=== PATIENT | male | born 1985 | race Caucasian/White ===

== ENCOUNTER 2021-07-30 04:57 | Emergency (ER) | payer OTHER ==
[~2021-07-30 04:57] MED LIST: BROMFED DM COU473 ML PO; DIAZEPAM 5MG TAB5 MG PO; KEFLEX250 MG PO; POTASSIUM20 MEQ/11 PO; ZOFRAN4 MG PO
[2021-07-30] MEDS ORDERED: PERCOCET 5-3251 EACH PO (06:03)
[2021-07-30] MEDS ORDERED: IBUPROFEN800 MG PO (06:03)
[2021-07-30] MEDS ORDERED: AUGMENTIN 875-1 EACH PO (06:03)
== END 2021-07-30 06:12 | disposition home or self-care (01) ==
LOC: FER 04:57
DX: K05.219 Aggressive periodontitis, localized, unspecified severity (principal); F17.210 Nicotine dependence, cigarettes, uncomplicated
CPT/HCPCS: 99282; Q0163

== ENCOUNTER 2022-01-26 18:38 | Emergency (ER) | payer OTHER ==
[~2022-01-26 18:38] MED LIST changes: +AUGMENTIN 875-1 EACH PO; +IBUPROFEN800 MG PO; +PERCOCET 5-3251 EACH PO
[2022-01-26] MEDS ORDERED: AMOX TR-K CLV1 EAC4 PO (20:11)
[2022-01-26] MEDS ORDERED: NORCO 5-325 TA1 EACH PO (20:11)
[2022-01-26] MEDS ORDERED: NAPROXEN500 MG PO (20:11)
== END 2022-01-26 20:40 | disposition home or self-care (01) ==
LOC: FER 18:38
DX: K02.9 Dental caries, unspecified (principal); F17.210 Nicotine dependence, cigarettes, uncomplicated
CPT/HCPCS: 99282

== ENCOUNTER 2022-02-03 11:15 | Emergency (ER) | payer OTHER ==
[~2022-02-03 11:15] MED LIST changes: +AMOX TR-K CLV1 EAC4 PO; +NAPROXEN500 MG PO; +NORCO 5-325 TA1 EACH PO
[2022-02-03] MEDS ORDERED: NORCO 5-325 TA1 EACH PO (12:39)
[2022-02-03] MEDS ORDERED: CLEOCIN300 MG PO (12:39)
== END 2022-02-03 13:17 | disposition home or self-care (01) ==
LOC: FER 11:15
DX: K04.7 Periapical abscess without sinus (principal); Z28.310 Unvaccinated for COVID-19
CPT/HCPCS: 99282

== ENCOUNTER 2022-02-25 20:17 | Emergency (ER) | payer OTHER ==
[~2022-02-25 20:17] MED LIST changes: +CLEOCIN300 MG PO
[2022-02-25] MEDS ORDERED: AZITHROMYCIN250 MG PO (21:59)
[2022-02-25] MEDS ORDERED: PREDNISONE 20MG20 MG PO (21:59)
[2022-02-25] MEDS ORDERED: MUCINEX DM ER1 EACH PO (21:59)
[2022-02-25] MEDS ORDERED: AMOX TR-K CLV1 EAC4 PO (21:59)
== END 2022-02-25 22:20 | disposition home or self-care (01) ==
LOC: FER 20:17
DX: J18.9 Pneumonia, unspecified organism (principal); F17.210 Nicotine dependence, cigarettes, uncomplicated
CPT/HCPCS: 71045; J7512